=== PATIENT | female | born 1995 | race Hispanic/Latino ===

== ENCOUNTER 2025-02-15 16:21 | Emergency (ER) | payer BC ==
--- OUTSIDE RECORDS SUMMARY | 2025-02-15 16:24 | XMS REPORT | Continuity of Care Document ---
Author Name Unknown Address [address] [facility] [address] [place] [address] [facility] Address [address] [facility]. [address] [place] [address] Care Team Providers Care Condenser Tube Tender Name Role Phone JULIET VALLEJO Primary Care Physician Unavailab DARNELL Cox Attending Clinician Unavailable DR JULIET VALLEJO Attending Clinician Unavailable [phone] Attending Clinician Unavailable DR FELIX HO Attending Clinician Unavailab le [phone] Attending Clinician Unavailable JULIET DAVEY Attending Clinician Unavailable Sarah_Td Attending Clinician Unavailable MIKA APPIAH Attending Clinician UnavailOPAL Delgado Attending Clinician Unavailab igor MEHOP_ELIGIBILITY Attending Clinician Unavailabl e SANTANA Attending Clinician Unavailable ISMAEL DE LEON Attending Clinician Unavail able Judie Tovar RN Attending Clinician Unavailab DORITA Wyman Attending Clinician Unavailable PING PANTOJA Attending Clinician Unavailable FRANKLIN WASHINGTON Attending Clinician Unavailable ZAID PRESTON Attending Clinician Unavaila JEREMIAS Mcclure Attending Clinician NIGEL Ly Attending Clinician Unavailable DAVI MORALES Attending Clinician DR JULIET Jaquez Admitting Clinician Unavailable DR FELIX HO Admitting Clinician Unavailab Guerrero_Pappas Admitting Clinician Unavailable MEHOP_ELIGIBILITY Admitting Clinician Unavailabhishek MARTINEZSHIRA Admitting Clinician Unavailable Payers Payer Name Policy Type Policy Number Effective Date Expirati on Date Source CIGNA OPEN ACCESS/OPEN ACCESS PLUS [id number] 2016 00:00:00 [employer] [id number] [place] [id number] 2022 00:00:00 [facility] [id number] 2016 00:00:00 2021 00:00:00 Problems Condition Name Condition Details Condition Category Status Onset Date Resolution Date Last Treatment Date Treating Clinician Comments Source Menometror rhagia Menometror rhagia Problem Active 06-03 00:00: 00 [facility] Polycystic ovary syndrome Polycystic Ovary Syndrome Problem Active 06-03 00:00: 00 [facility] Irregular periods Irregular periods Disease Active 04-17 00:00: 00 [facility] Vaginitis and vulvovagin itis Vaginitis and vulvovagin itis Disease Active 04-17 00:00: 00 [facility] Dysmenorrh ea Dysmenorrh ea Disease Active 04-17 00:00: 00 [facility] Body mass index 40+ - severely obese Body Mass Index 40+ - Severely Obese Problem Active 2019-10 00:00: 00 [facility] Primary female infertilit y Primary Female Infertilit y Problem Active 2018-10 00:00: 00 [facility] Allergies, Adverse Reactions, Alerts Allergy Name Allergy Type Status Severity Reaction(s) Onset Date Inactive Date Treating Clinician Comments Source No Known Drug Allergie s DA Active UNKNOWN [facility] Social History Social Habit Start Date Stop Date Quantity Comments Source History SDOH Alcohol Std Drinks [facility] History SDOH Alcohol Binge [facility] Exposure to SARS-CoV-2 (event) Not sure [facility] History SDOH Alcohol Frequency 2021-04-17 00:00:00 2021-04-17 00:00:[address] [facility] Tobacco use and exposure 2021-04-17 00:00:00 2021-04-17 00:00:[address] [facility] Alcohol intake 2021-04-17 00:00:00 2021-04-17 00:00:00 Lifetime non-drinker (finding) [facility] Sex Assigned At 1995 00:00:00 1995 00:00:[address] [facility] Smoking Status Start Date Stop Date Source Former Smoker [facility] Medications Ordered Medication Name Filled Medication Name Start Date Stop Date Current Medication? Ordering Clinician Indication Dosage Frequency Signature (SIG) Comments Components Source metroNIDAZO LE (Flagyl) 500 MG tablet 04-20 00:00: 00 04-28 04:59 :00 No [id number] 500mg Q.5D Take 1 tablet (500 mg total) by mouth 2 (two) times a day for [address] [facility] nebivolol (Bystolic) 5 MG tablet 04-17 20:02: 46 Yes 5mg QD Take 5 mg by mouth 1 (one) time each day. [facility] norethindro ne (Micronor) 0.35 MG tablet 04-17 00:00: 00 Yes [id number] .35mg QD Take 1 tablet (0.35 mg total) by mouth 1 (one) time each day. [facility] medroxyprog esterone 10 mg tablet TAKE 1 TABLET BY MOUTH EVERY DAY FOR 10 DAYS OF EACH MONTH medroxyprog esterone 10 mg tablet TAKE 1 TABLET BY MOUTH EVERY DAY FOR 10 DAYS OF EACH MONTH No medroxypro gesterone 10 mg tablet TAKE 1 TABLET BY MOUTH EVERY DAY FOR 10 DAYS OF EACH MONTH [facility] Flagyl 500 mg tablet Take 1 tablet twice a day by oral route for 5 days. Flagyl 500 mg tablet Take 1 tablet twice a day by oral route for 5 days. No 1 BID Flagyl 500 mg tablet Take 1 tablet twice a day by oral route for 5 days. [facility] metronidazo le 500 mg tablet Take 1 tablet twice a day by oral route for 7 days. metronidazo le 500 mg tablet Take 1 tablet twice a day by oral route for 7 days. No 1 BID metronidaz ole 500 mg tablet Take 1 tablet twice a day by oral route for 7 days. [facility] Immunizations Ordered Immunization Name Filled Immunization Name Date Status Comments Source influenza, high dose seasonal influenza, high dose seasonal 2013-10-20 00:00:00 Completed [facility] influenza, high dose seasonal influenza, high dose seasonal 2013-10-20 00:00:00 Completed [facility] influenza, high dose seasonal influenza, high dose seasonal Unknown Completed [facility] Vital Signs Vital Name Observation Time Observation Value Comments S ource BP Systolic 2023-09-02 00:00:00 146 mm[Hg] [facility] Height 2023-09-02 00:00:00 67 [in_i] [facility] Body Weight 2023-09-02 00:00:00 283 [lb_av] [facility] BP Diastolic 2023-09-02 00:00:00 96 mm[Hg] [facility] BMI (Body Mass Index) 2023-09-02 00:00:00 44.3 kg/m2 [facility] BMI (Body Mass Index) 2023-06-03 00:00:00 44.1 kg/m2 [facility] BP Systolic 2023-06-03 00:00:00 140 mm[facility] Weight 2023-06-03 00:00:00 281.8 [lb_av] [facility] Height 2023-06-03 00:00:00 67 [in_i] [facility] BP Diastolic 2023-06-03 00:00:00 82 mm[Hg] [facility] Systolic blood pressure 2021-04-17 20:01:00 119 mm[Hg] [facility] Diastolic blood pressure 2021-04-17 20:01:00 65 mm[Hg] [facility] Heart rate 2021-04-17 20:01:00 63 /min [facility] Body temperature 2021-04-17 20:01:00 36.67 Joanie [facility] Body height 2021-04-17 20:01:00 [facility] Body weight 2021-04-17 20:01:00 117.482 [facility] BMI 2021-04-17 20:01:00 40.57 kg/m2 [facility] BP Diastolic 2020-10-06 00:00:00 84 mm[Hg] [facility] Height 2020-10-06 00:00:00 67 [facility]in_i[facility] BMI (Body Mass Index) 2020-10-06 00:00:00 41.8 kg/m2 [facility] BP Systolic 2020-10-06 00:00:00 133 mm[Hg] [facility] Body Weight 2020-10-06 00:00:00 266.6 [lb_av] [facility] BP Diastolic 2019-09-29 00:00:00 76 mm[Hg] [facility] Height 2019-09-29 00:00:00 67 [in_i] [facility] BMI (Body Mass Index) 2019-09-29 00:00:00 40.4 kg/m2 [facility] BP Systolic 2019-09-29 00:00:00 130 mm[Hg] [facility] Body Weight 2019-09-29 00:00:00 257.7 [lb_av] [facility] BP Diastolic 2019-09-06 00:00:00 71 mm[Hg] [facility] Height 2019-09-06 00:00:00 67 [in_i] [facility] BMI (Body Mass Index) 2019-09-06 00:00:00 40.6 kg/m2 [facility] BP Systolic 2019-09-06 00:00:00 134 mm[Hg] [facility] Body Weight 2019-09-06 00:00:00 259.5 [lb_av] [facility] Procedures Procedure Date / Time Performed Performing Clinician Source US, transvaginal 2023-06-03 00:00:00 [facility] XR, hysterosalpingogram 2019-09-06 00:00:00 [facility] Plan of Care Planned Activity Planned Date Details Comments Source Diagnostic Test Pending 2023-09-02 00:00:00 urinalysis, dipstick [code = urinalysis, dipstick] [facility] Diagnostic Test Pending 2023-09-02 00:00:00 pap, LB + CT/NG/TV + HPV + reflex HPV (16+18+45) [code = pap, LB + CT/NG/TV + HPV + reflex HPV (16+18+45)] [facility] Diagnostic Test Pending 2023-09-02 00:00:00 wet mount, vaginal [code = wet mount, vaginal] [facility] Diagnostic Test Pending 2023-09-02 00:00:00 culture, urine [code = culture, urine] [facility] Instructions [facility] Encounters Start Date/Time End Date/Time Encounter Type Admission Type Attending Clinicians Care Facility Care Department Encounter ID Source 2021-04-17 15:38:08 Outpatient D[facility]NELL [facility] [id number] [facility] 2024-11-02 00:52:00 2024-11-02 01:35:00 Emergency E JULIET VALLEJO [id number] [facility] ER [id number] [facility] 2024-08-14 18:16:00 2024-08-14 19:06:00 Emergency E JULIET VALLEJO [id number] [facility] ER [id number] [facility] 2024-05-26 00:22:00 2024-05-26 01:05:00 Emergency E FELIX HO [id number] [facility] ER [id number] [facility] [place] 2024-03-28 04:21:00 2024-03-28 06:50:00 Emergency ER JULIET DAVEY [facility] [id number] [facility] 2023-11-25 00:00:00 2023-11-25 00:00:00 Outpatient G_Pappas MMG MMG [id number] [facility] 2023-09-24 00:00:00 2023-09-24 00:00:00 Outpatient G_Pappas MMG MMG [id number] [facility] 2023-09-02 11:46:00 2023-09-02 11:46:00 Outpatient DARIAN APPIAH MIKA [facility] [id number] [facility] 2023-09-02 00:00:00 2023-09-02 00:00:00 Outpatient G_[facility]appas MMG MMG [id number] [facility] 2023-09-02 00:00:00 2023-09-02 00:00:00 Mika Appiah MD: [address] [facility], [facility] [address], [place] [address] , Ph. [phone] MM[facility] [place] [facility] [id number] [facility] 2023-09-01 00:00:00 2023-09-01 00:00:00 Outpatient G_Pappas MMG MMG [id number] [facility] 2023-08-30 00:00:00 2023-08-30 00:00:00 Outpatient G_[facility]appas MMG MMG [id number] [facility] 2023-07-26 00:00:00 2023-07-26 00:00:00 Outpatient G_[facility]appas MMG MMG [id number] [facility] 2023-07-02 00:00:00 2023-07-02 00:00:00 Outpatient G_[facility]appas MMG MMG [id number] [facility] 2023-06-21 00:00:00 2023-06-21 00:00:00 Outpatient G_[facility]appas MMG MMG [id number] [facility] 2023-06-03 00:00:00 2023-06-03 00:00:00 Outpatient G_[facility]appas MMG MMG [id number] [facility] 2023-06-03 00:00:00 2023-06-03 00:00:00 Mika Appiah MD: [address] [facility], [facility] [address], [place] [address] , Ph. [phone] [facility] [place] [facility] [id number] [facility] 2022-12-06 00:00:00 2022-12-06 00:00:00 Outpatient G_[facility] MMG MMG [id number] [facility] 2022-05-28 03:22:00 2022-05-28 05:10:00 Emergency ER REBEKAJANNETTEOR [facility] [id number] [facility] 2022-04-03 04:57:00 2022-04-03 04:57:00 Outpatient MEHOP_ELIGI [facility] [id number] [facility] 2022-03-22 03:16:00 2022-03-22 03:16:00 Outpatient MEHOP_ELIGI [facility] [id number] [facility] 2022-02-12 03:47:00 2022-02-12 03:47:00 Outpatient LISTER_MELI [facility] [id number] [facility] 2022-02-12 03:47:00 2022-02-12 03:47:00 Outpatient LISTER_MELI [facility] [id number] [facility] 2021-10-17 07:57:00 2021-10-17 11:49:00 Emergency ER ISMAEL DE LEON [facility] [id number] [facility] 2021-05-04 06:53:00 2021-05-04 06:53:00 Outpatient G_[facility]appas MMG MMG [id number] [facility] 2021-05-04 06:53:00 2021-05-04 06:53:00 Outpatient G_[facility]appas MMG MMG [id number] [facility] 2021-05-04 06:53:00 2021-05-04 06:53:00 Outpatient G_[facility]appas MMG MMG [id number] [facility] 2021-05-04 00:00:00 2021-05-04 00:00:00 Outpatient G_Pappas MMG MM [id number] [facility] 2021-05-04 00:00:00 2021-05-04 00:00:00 Outpatient G_Pappas MMG MMG [id number] [facility] 2021-04-20 00:00:00 2021-04-20 00:00:00 Telephone Judie Tovar Meagen [facility] [id number] [facility] 2021-04-19 00:00:00 2021-04-19 00:00:00 Telephone Guy Judie Beckman [facility] [id number] [facility] 2021-04-17 14:33:35 2021-04-17 15:39:05 Office Visit EdisonyunierDarnell sears [facility] [id number] [facility] 2021-04-09 12:32:00 2021-04-09 12:32:00 Outpatient LISTER_MELI JONATHAN [facility] [id number] [facility] 2021-03-01 09:35:00 2021-03-01 09:35:00 Outpatient DARIAN DORITA ULRICH [facility] [id number] [facility] 2021-02-24 02:59:00 2021-02-24 04:57:00 Emergency PING PARIS [facility] [id number] [facility] 2021-02-12 04:08:00 2021-02-12 06:12:00 Emergency ER PING PANTOJA [facility] [id number] [facility] 2020-12-03 04:36:00 2020-12-03 04:36:00 Outpatient G_[facility]appas MMG MMG [id number] [facility] 2020-10-09 08:51:00 2020-10-09 08:51:00 Outpatient G_[facility]appas MMG MMG [id number] [facility] 2020-10-06 10:31:00 2020-10-06 10:31:00 Outpatient G_Pappas MMG MMG [id number] [facility] 2020-10-06 00:00:00 2020-10-06 00:00:00 Mika Appiah MD: [address] [place] [address] , Ph. [phone] [facility] [id number] [facility] 2020-09-11 01:06:00 2020-09-11 01:06:00 Outpatient G_Pappas MMG MMG [id number] [facility] 2020-09-08 09:14:00 2020-09-08 09:14:00 Outpatient G_Pappas MMG MMG [id number] [facility] 2020-09-06 02:38:00 2020-09-06 02:38:00 Outpatient G_Pappas MMG MMG [id number] [facility] 2019-12-22 10:38:00 2019-12-22 10:38:00 Outpatient G_Pappas MMG MMG [id number] [facility] 2019-11-17 12:06:00 2019-11-17 12:06:00 Outpatient G_Pappas MMG MMG [id number] [facility] 2019-09-29 00:00:00 2019-09-29 00:00:00 Mika Appiah MD: [address] [place] [address] , Ph. [phone] [facility] [id number] [facility] 2019-09-06 15:08:00 2019-09-06 15:08:00 Outpatient MIKA OLIVIA [facility] [id number] [facility] 2019-09-06 00:00:00 2019-09-06 00:00:00 Mika Appiah MD: [address] [facility] [address], [place] [address] , Ph. [phone] [facility] [id number] [facility] 2019-03-22 11:56:00 2019-03-22 11:56:00 Outpatient FRANKLIN AKHTAR [facility] [id number] [facility] 2018-08-28 14:20:00 2018-08-28 14:20:00 Outpatient DARIAN APPIAH MIKA [facility] [id number] [facility] 2017-08-27 15:18:00 2017-08-27 15:18:00 Outpatient DARIAN APPIAH MIKA [facility] [id number] [facility] 2017-03-21 14:24:00 2017-03-21 14:24:00 Outpatient FRANKLIN AKHTAR [facility] [id number] [facility] 2017-03-04 10:56:00 2017-03-04 10:56:00 Outpatient ZAID BLANDON [facility] [id number] [facility] 2016-07-26 15:50:00 2016-07-26 15:50:00 Outpatient DARIAN APPIAH MIKA [facility] [id number] [facility] 2014-11-10 15:59:00 2014-11-10 15:59:00 Outpatient DARIAN APPIAH MIKA [facility] [id number] [facility] 2013-07-24 14:54:00 2013-07-24 18:26:00 Emergency ER JEREMIAS YAÑEZ [facility] [id number] [facility] 2011-02-26 19:30:00 2011-02-26 21:35:00 Emergency ER NIGEL MCGUIRE [facility] [id number] [facility] 2008-06-04 11:59:00 2008-06-04 13:57:00 Emergency ER DAVI MORALES [facility] [id number] [facility] Results Test Description Test Time Test Comments Results Result Co mments Source [facility]) panel - [id number] 08:53:18* Test Item Value Reference Range Interpretation Comme nts Leukocytes (test code = Leukocytes) Trace Nitrite (test code = Nitrite) negative Urobilinogen (test code = Urobilinogen) .2 Protein (test code = Protein) Trace pH (test code = pH) 6.0 Blood (test code = Blood) Moderate Specific [place] (test code = Specific [place]) 1.030 Ketone (test code = Ketone) Negative Bilirubin (test code = Bilirubin) Negative Glucose (test code = Glucose) Negative Appearance (test code = Appearance) Clear Color (test code = Color) Yellow [facility] [Identifier] in Vaginal fluid by Wet [id number] 08:53:59* Test Item Value Reference Range Interpretation Comme nts Clue Cells (test code = Clue Cells) positive WBCs (test code = WBCs) negative Trichomonads (test code = Trichomonads) negative Epithelial cells (test code = Epithelial cells) abnormal RBCs (test code = RBCs) positive [facility], [id number] 08:40:09* Test Item Value Reference Range Interpretation Comme nts Test (test code = Test) negative [facility] macro (dipstick) panel - [id number] 08:39:56* Test Item Value Reference Range Interpretation Comme nts Leukocytes (test code = Leukocytes) Negative Nitrite (test code = Nitrite) negative Urobilinogen (test code = Urobilinogen) .2 Protein (test code = Protein) Negative pH (test code = pH) 6.0 Blood (test code = Blood) Small Specific [place] (test code = Specific [place]) 1.025 Ketone (test code = Ketone) Negative Bilirubin (test code = Bilirubin) Negative Glucose (test code = Glucose) Negative Appearance (test code = Appearance) Clear Color (test code = Color) Yellow [facility] macro (dipstick) panel - [id number] 10:14:30* Test Item Value Reference Range Interpretation Comme nts Leukocytes (test code = Leukocytes) Negative Nitrite (test code = Nitrite) negative Urobilinogen (test code = Urobilinogen) .2 Protein (test code = Protein) Negative pH (test code = pH) 6.0 Blood (test code = Blood) Small Specific [place] (test code = Specific [place]) 1.030 Ketone (test code = Ketone) Negative Bilirubin (test code = Bilirubin) Negative Glucose (test code = Glucose) Negative Appearance (test code = Appearance) Clear Color (test code = Color) Yellow [facility], [id number] 09:05:00* Test Item Value Reference Range Interpretation Comme nts Test (test code = Test) negative [facility] observation [Identifier] in Vaginal fluid by Wet [id number] 16:42:00* Test Item Value Reference Range Interpretation Comme nts Clue Cells (test code = Clue Cells) negative WBCs (test code = WBCs) positive Trichomonads (test code = Trichomonads) negative Epithelial cells (test code = Epithelial cells) normal RBCs (test code = RBCs) negative [facility], [id number] 14:38:05* Test Item Value Reference Range Interpretation Comme nts Test (test code = Test) negative [facility] macro (dipstick) panel - [id number] 14:37:30* Test Item Value Reference Range Interpretation Comme nts Leukocytes (test code = Leukocytes) Negative Nitrite (test code = Nitrite) negative Urobilinogen (test code = Urobilinogen) .2 Protein (test code = Protein) Negative pH (test code = pH) 5.5 Blood (test code = Blood) Non-Hemolyzed: Trace Specific [place] (test code = Specific [place]) 1.030 Ketone (test code = Ketone) Negative Bilirubin (test code = Bilirubin) Negative Glucose (test code = Glucose) Negative Appearance (test code = Appearance) Clear Color (test code = Color) Yellow [facility]+Neisseria gonorrhoeae DNA [Presence] in Cervix by Probe and target amplification [id number] 02:26:00 ResultsM[facility]Field [facility] HospitalMicroscopic observation [Identifier] in Cervix by Cyto stain.thin [id number] 02:26:00* Test Item Value Reference Range Interpretation Comme nts Human papilloma virus 16+18+31+33+35+39+45+51+52+56+58+59+ 68 DNA [Presence] in Cervix by Probe and signal amplification method (test code = 14814-7) negative results (test code = results) [facility]
[2025-02-15 17:14] LABS: Influenza A Ag Negative; Influenza B Ag Negative; SARS-CoV-2 Antigen Rapid Res Negative (Negative)
--- NOTE | 2025-02-15 17:16 | EDPHYS ---
Physician Documentation [facility] Name: La Christianson Age: 29 yrs Sex: Female : 1995 Arrival Date: 02/15/2025 Time: 16:21 Bed IW5 Private MD: ED Physician Edgardo Palacios HPI: 02/15 16:53 This 29 yrs old Female presents to ER via Ambulatory with complaints of Flu sb4 Symptoms. 18:03 Patient reports flulike symptoms for few days now. States that she was exposed to flu. sb4 She just wants to be swabbed to know what she has. States she had a negative COVID and flu test at home. Denies any pain. No shortness of breath. Historical: - Allergies: 16:50 No Known Allergies; ld1 - Home Meds: 16:50 None [Active]; ld1 - PMHx: 16:50 None; ld1 - PSHx: 16:50 None; ld1 - Immunization history:: Adult Immunizations up to date. - Infectious Disease History:: Denies. - Social history:: Smoking status: Patient denies any tobacco usage or history of. ROS: 18:04 Abdomen/GI: Negative for abdominal pain, nausea, vomiting, diarrhea, and constipation, sb4 18:04 Constitutional: Positive for body aches, 18:04 ENT: Positive for sinus congestion, 18:04 Respiratory: Positive for cough, 18:04 All other systems are negative, Exam: 18:04 Constitutional: This is a well developed, well nourished patient who is awake, alert, sb4 and in no acute distress. Head/Face: Normocephalic, atraumatic. Eyes: Extra-ocular motions intact. Periorbital areas with no swelling, redness, or edema. ENT: Mucous membranes moist. Respiratory: No increased work of breathing, no retractions or nasal flaring. Skin: Warm, dry with normal turgor. Normal color with no rashes, no lesions, and no evidence of cellulitis. Vital Signs: 16:49 BP 129 / 88; Pulse 79; Resp 18; Temp 98.6(O); Weight 127.01 kg; Height 5 ft. 7 in. ; ld1 Pain 0/10; 16:49 Body Mass Index 43.85 (127.01 kg, 170.18 cm) ld1 16:49 Pain Scale: Adult ld1 MDM: 16:40 Medical Screening Exam initiated sb4 18:04 Data reviewed: vital signs, nurses notes, and as a result, I will discharge patient. sb4 Counseling: I had a detailed discussion with the patient and/or guardian regarding the historical points, exam findings, and any diagnostic results supporting the discharge/admit diagnosis, the need for outpatient follow up, for definitive care, to return to the emergency department if symptoms worsen or persist or if there are any questions or concerns that arise at home. 02/15 16:49 Order name: COVID-19 Ag + Flu A+B Ag; Complete Time: 17:16 ld1 Administered Medications: No medications were administered Disposition Summary: 02/15/25 17:16 Discharge Ordered Notes: Location: Home sb4 Problem: new sb4 Symptoms: are unchanged sb4 Condition: Stable sb4 Diagnosis - Viral infection, unspecified sb4 Followup: sb4 - With: Private Physician - When: 1 week - Reason: Recheck today's complaints, Re-evaluation by your physician Discharge Instructions: - Discharge Summary Sheet sb4 - Viral Illness, Adult sb4 Forms: - Patient Portal Instructions sb4 - Leadership Thank You Letter sb4 Addendum: 02/17/2025 07:04 Co-signature as Attending Physician, Edgardo Palacios MD I reviewed the patient's care r n provided by the Advanced Practice Provider and agree with the diagnosis and treatment plan. Signatures: Dispatcher [employer] Edgardo James MD MD rn Sims, Lauren, RN RN ld1 Falguni Benson PA-C PA-C sb4
--- NOTE | 2025-02-15 17:16 | ER ---
Nurse's Notes [facility] Name: La Christianson Age: 29 yrs Sex: Female : 1995 Arrival Date: 02/15/2025 Time: 16:21 Bed IW5 Private MD: Diagnosis: Viral infection, unspecified Presentation: 02/15 16:49 Chief complaint: Patient states: Pt c/o cough, congestion, body aches. Coronavirus ld1 screen: At this time, the client does not indicate any symptoms associated with coronavirus-19. Ebola Screen: No symptoms or risks identified at this time. Initial Sepsis Screen: Does the patient meet any 2 criteria? No. Patient's initial sepsis screen is negative. Does the patient have a suspected source of infection? No. Patient's initial sepsis screen is negative. Risk Assessment: Do you want to hurt yourself or someone else? Patient reports no desire to harm self or others. Onset of symptoms was February 15, 2025 at 16:50. 16:49 Method Of Arrival: Ambulatory ld1 16:49 Acuity: SHANEKA 4 ld1 Triage Assessment: 16:50 General: Appears in no apparent distress. comfortable, Behavior is calm, cooperative, ld1 appropriate for age. Pain: Denies pain. EENT: No signs and/or symptoms were reported regarding the EENT system. Neuro: Level of Consciousness is awake, alert, obeys commands, Oriented to person, place, time, situation. Cardiovascular: Capillary refill < 3 seconds Patient's skin is warm and dry. Respiratory: Airway is patent Respiratory effort is even, unlabored. GI: Abdomen is round non-distended. : No signs and/or symptoms were reported regarding the genitourinary system. Derm: No signs and/or symptoms reported regarding the dermatologic system. Historical: - Allergies: 16:50 No Known Allergies; ld1 - Home Meds: 16:50 None [Active]; ld1 - PMHx: 16:50 None; ld1 - PSHx: 16:50 None; ld1 - Immunization history:: Adult Immunizations up to date. - Infectious Disease History:: Denies. - Social history:: Smoking status: Patient denies any tobacco usage or history of. Screenin:[address] [facility] ED Fall Risk Assessment (Adult) History of falling in the last 3 months, ld1 including since admission No falls in past 3 months (0 pts) Confusion or Disorientation No (0 pts) Intoxicated or Sedated No (0 pts) Impaired Gait No (0 pts) Mobility Assist Device Used No (0 pt) Altered Elimination No (0 pt) Score/Fall Risk Level 0 - 2 = Low Risk Oriented to surroundings, Hourly rounding (assess needs \T\ fall precautionary measures) done. Abuse screen: Denies threats or abuse. Denies injuries from another. Nutritional screening: No deficits noted. Tuberculosis screening: No symptoms or risk factors identified. Assessment: 17:17 Reassessment: No changes from previously documented assessment. Patient and/or family ld1 updated on plan of care and expected duration. Pain level reassessed. 17:21 Reassessment: Called from triage. Pt not in lobby at this time. ld1 Vital Signs: 16:49 BP 129 / 88; Pulse 79; Resp 18; Temp 98.6(O); Weight 127.01 kg; Height 5 ft. 7 in. ; ld1 Pain 0/10; 16:49 Body Mass Index 43.85 (127.01 kg, 170.18 cm) ld1 16:49 Pain Scale: Adult ld1 ED Course: 16:26 Patient arrived in ED. cj3 16:31 Fal[facility]i [facility]. sb4 16:31 Edgardo Palacios MD is Attending Physician. sb4 16:50 Triage completed. ld1 16:50 Arm band placed on. ld1 17:17 Macrina Pace RN is Primary Nurse. ld1 17:18 Patient has correct armband on for positive identification. ld1 17:18 No provider procedures requiring assistance completed. Patient did not have IV access ld1 during this emergency room visit. Administered Medications: No medications were administered Medication: 17:17 VIS not applicable for this client. ld1 Outcome: 17:16 Discharge ordered by . sb4 17:59 Discharged to home ambulatory, ld1 17:59 Condition: stable 17:59 Discharge instructions given to patient, Instructed on discharge instructions, follow up and referral plans. Demonstrated understanding of instructions, follow-up care, 17:59 Patient left the ED. ld1 Signatures: Macrina Pace RN RN ld1 Falguni Benson PA-C PA-C sb4 Jamal, Aicha cj3
[2025-02-16 07:00] VITALS: BP 129/88; TEMP 98.6
== END 2025-02-15 17:59 | disposition home or self-care (01) ==
LOC: ER 16:21
DX: B34.9 Viral infection, unspecified (principal); Z11.52 Encounter for screening for COVID-19
CPT/HCPCS: 36415; 87428